=== PATIENT | female | born 1945 | race Caucasian/White ===

== ENCOUNTER 2023-12-09 14:32 | Emergency (ER) | payer MEDICARE, SELFPAY ==
[2023-12-09] VITALS (7 sets, daily range): BP systolic 157–167; BP diastolic 79–93; PULSE 76–103; RESP 12–24; TEMP 37.1; O2SAT 95–97; BMI 29.0
[2023-12-09 15:41] LABS: Add Manual Diff / Slide Review NO; Basophils Absolute Auto 100 /uL (0-100); Basophils Percent Auto 0.8 % (0-2); Eosinophils Absolute Auto 100 /uL (0-450); Eosinophils Percent Auto 1.2 % (2-4); Hematocrit 41.7 % (36-46); Hemoglobin 14.2 g/dL (12.0-16.0); Lymphocytes Absolute Auto 2000 /uL (1100-4500); Lymphocytes Percent Auto 22.2 % (25-40); Mean Corpuscular Hemoglobin 29.8 PG (26-34); Mean Corpuscular Volume 87.4 fL (80-100); Monocytes Absolute Auto 600 /uL (0-900); Monocytes Percent Auto 6.6 % (3-14); Neutrophils Absolute Auto 6200 /uL (1500-7000); Neutrophils Percent Auto 69.2 % (50-75); Platelet Count 293 X10^3/uL (150-400); Red Blood Cell Count 4.77 X10^6/uL (4.0-5.2); Red Cell Distribution Width 13.7 % (11.6-14.8)
[2023-12-09 15:47] LABS: Alanine Aminotransferase 16 IU/L (<35); Albumin Globulin Ratio 1.4 (1.0-2.8); Alkaline Phosphatase 143 U/L (38-126); Aspartate Aminotransferase 22 IU/L (14-36); Bilirubin Total 0.8 mg/dL (0.2-1.3); Blood Urea Nitrogen 17 mg/dL (7-17); Calcium 9.9 mg/dL (8.4-10.2); Carbon Dioxide 24 mmol/L (22-32); Chloride 104 mmol/L (98-107); Estimated Glomerular Filt Rate > 60 mL/min (>60); Globulin 2.8 g/dL (1.7-4.1); Glucose 112 mg/dL (80-110); HEMOLYSIS 17 (0-50); Lipase 47 U/L (23-300); Potassium 3.4 mmol/L (3.4-5.1); Sodium 134 mmol/L (137-145); Total Protein 6.8 g/dL (6.3-8.2)
--- NOTE | 2023-12-09 16:02 | EKG_ITS ---
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
--- NOTE | 2023-12-09 16:50 | PC.NURSE ---
Patient notified this RN that symptoms have resolved and she feels ready to go home, but she states that she would still like to be seen and have an ultrasound because of her GI history
--- NOTE | 2023-12-09 17:39 | ED.ABDPAIN ---
HPI - Abdominal Pain General Chief Complaint: Abdominal Pain Stated Complaint: abd pain left lower side Time Seen by Provider: 12/09/23 17:39 Source: patient Mode of arrival: Family Vehicle History of Present Illness HPI narrative: Patient is a 78-year-old female history of appendectomy perforated colon presenting today with sudden onset of left lower quadrant pain. She reports that she was doing well last night she now has been are visiting from [place] and suddenly this morning she was doubled over in pain in the left lower quadrant. She denies any flank pain. She was out on a walk she was having some twinges in her lower abdomen and then had severe pain. She had pain coming and going waves. However since waiting in the emergency department for number of hours her pain is completely resolved and she feels fine. She has not had any fever or chills. Patient History Social History Smoking Status: Former smoker Smoking Status: Former smoker Substance Use Type: does not use Exam Initial Vital Signs Initial Vital Signs: Vital Signs Temperature 98.7 F 12/09/23 14:44 Pulse Rate 103 H 12/09/23 14:44 Respiratory Rate 18 12/09/23 14:44 Blood Pressure 167/90 H 12/09/23 14:44 Pulse Oximetry 97 12/09/23 14:44 Oxygen Delivery Method Room Air 12/09/23 14:44 GENERAL: Alert very well-appearing 78-year-old female and in no acute distress. HEENT: Head atraumatic,EOMI, pupils reactive, face symmetric, moist mucous membranes CARDIOVASCULAR: Regular rate and rhythm without murmurs, rubs or gallops. RESPIRATORY: Breath sounds equal bilaterally, no wheezes rales or rhonchi. ABDOMEN: Soft, nontender. Normoactive bowel sounds all 4 quadrants. No guarding or rebound. : No CVA tenderness EXTREMITIES: Normal range of motion, no clubbing or edema. Neurovascularly intact NEUROLOGICAL: Alert and oriented x4.Normal gait and speech. SKIN: Warm, dry, no laceration, no petechiae, no rashes or lesions. Course Orders Ordered: ED Orders 12/09/23 14:54 EKG-12 Lead Stat 12/09/23 15:06 Complete Blood Count AUTO DIFF Stat Comprehensive Metabolic Panel Stat Lipase Stat Ondansetron HCl (Ondansetron 4 Mg/2 Ml Inj) 4 mg IV NOW PRN PRN Reason: Nausea And Vomiting Ondansetron HCl (Ondansetron 4 Mg Odt) 4 mg PO NOW PRN PRN Reason: Nausea And Vomiting Vital Signs Vital signs: Vital Signs - 8 hr 12/09/23 14:44 Temperature 98.7 F Pulse Rate 103 H Respiratory Rate 18 Blood Pressure 167/90 H Pulse Oximetry 97 Oxygen Delivery Method Room Air MDM - Abdominal Pain Lab Data 12/09/23 15:06 12/09/23 15:06 Labs: Lab Results 12/09/23 Range/Units 15:06 WBC 9.0 (4.5-11.0) X10^3/uL RBC 4.77 (4.0-5.2) X10^6/uL Hgb 14.2 (12.0-16.0) g/dL Hct 41.7 (36-46) % MCV 87.4 (80-100) fL MCH 29.8 (26-34) PG MCHC 34.0 (30-36) % RDW 13.7 (11.6-14.8) % Plt Count 293 (150-400) X10^3/uL Neut % (Auto) 69.2 (50-75) % Lymph % (Auto) 22.2 L (25-40) % [place] % (Auto) 6.6 (3-14) % Eos % (Auto) 1.2 L (2-4) % Baso % (Auto) 0.8 (0-2) % Neut # (Auto) 6200 (6633-9847) /uL Lymph # (Auto) 2000 (0204-4300) /uL [place] # (Auto) 600 (0-900) /uL Eos # (Auto) 100 (0-450) /uL Baso # (Auto) 100 (0-100) /uL Sodium 134 L (137-145) mmol/L Potassium 3.4 (3.4-5.1) mmol/L Chloride 104 (98-107) mmol/L Carbon Dioxide 24 (22-32) mmol/L BUN 17 (7-17) mg/dL Creatinine 0.68 (0.52-1.04) mg/dL Estimated GFR > 60 (>60) mL/min BUN/Creatinine Ratio 25.0 H (6-22) Glucose 112 H (80-110) mg/dL Calcium 9.9 (8.4-10.2) mg/dL Total Bilirubin 0.8 (0.2-1.3) mg/dL AST 22 (14-36) IU/L ALT 16 (<35) IU/L Alkaline Phosphatase 143 H (38-126) U/L Total Protein 6.8 (6.3-8.2) g/dL Albumin 4.0 (3.5-5.0) g/dL Globulin 2.8 (1.7-4.1) g/dL Albumin/Globulin Ratio 1.4 (1.0-2.8) Lipase 47 (23-300) U/L Point of care testing: Urine Dip Bedside Urine Glucose Negative Bedside Urine Bilirubin - Negative Bedside Urine Ketone +/- 5 Urine Specific [place] 1.015 Bedside Urine Occult Blood - Negative Bedside Urine pH 8.5 Bedside Urine Protein - Negative Bedside Urine Urobilinogen - Negative Bedside Urine Nitrite - Negative Bedside Urine Leukocytes - Negative Esterase ECG Data Attestation: I personally reviewed and interpreted this ECG as follows: Prior ECG tracings: not available for review Interpretation: Normal sinus rhythm rate 76 AK interval 152 QRS [address] changes MDM Narrative Medical decision making narrative: [facility] CC: Abdominal pain Complicating co-morbidities: Previous appendectomy coloectomy Medical records reviewed: none Differential considered: Nephrolithiasis diverticulitis perforation Exam documented above, pertinent findings include: Abdomen soft nontender nondistended no CVA tenderness alert well-appearing nontoxic female Lab Test results independently reviewed as above. Pertinent findings: WBC 9.0, hemoglobin 14.2 hematocrit 41.7, sodium 134 potassium 3.4 chloride 104 carbon dioxide 24 BUN 17 creatinine 0.6, bili 0.8 AST 22 ALT 16 alk-phos 143, lipase 47 Independently reviewed EKG as above sinus rhythm no ischemia Imaging studies independently reviewed: None Treatments: None Re-evaluations: Patient had complete resolution of pain while in the ED without any sort of intervention. She ambulated to the restroom any problem Discussion: Patient is 78-year-old female presenting today with sudden onset left lower quadrant pain. Came in went in waves. She does have significant history of perforation however pain resolved spontaneously. Blood work is overall reassuring without leukocytosis anemia or NIELS. Urinalysis does not show any hematuria or evidence of UTI. Discussion with patient about CT scan now versus waiting. At this time she would like to go home to [place] she feels comfortable going she has not had increased pain while in the ED. Abdomen is soft nontender. This seems like a reasonable plan however I did discuss with the roof her pain should come back then she should go back to an ED for further workup and imaging. Discharge Plan Departure Patient Disposition: Home Clinical Impression: Abdominal pain Instructions: DI for Abdominal Pain-Adult Activity Restrictions/Additional Instructions: *You have been diagnosed with abdominal pain *What to do: And glad that your pain has gotten better and resolved. However if her pain should return I do recommend he go back to an emergency department to have a CT scan Your blood work today was overall reassuring *Continue to take medications as directed *Follow up with your primary care provider in 2-3 days or call [phone] *Return to ER if you should have increasing pain nausea vomiting fever or any new, worsening or concerning symptoms Stand Alone Forms: Patient Portal/API
== END 2023-12-09 18:05 | disposition home or self-care (01) ==
PROVIDERS: Emergency Provider Emergency Medicine
DX: R10.32 Left lower quadrant pain (principal)
CPT/HCPCS: 36415; 80053; 81003; 83690; 85025; 93005; 93010; 99283; 99284